=== PATIENT | female | born 1935 | race African-American/Black ===

== ENCOUNTER 2017-09-05 13:54 | Emergency (ER) | payer OTHER ==
[~2017-09-05] VITALS: Ht 165.1 cm; Wt 78.0 kg
[2017-09-05] MEDS ORDERED: HYDR-4061 PO (15:26)
[2017-09-05] MEDS ORDERED: TRAM50TA4 PO (15:26)
[2017-09-05 15:54] LABS: BASOPHILS % (AUTO) 0.7 % (0.0-2.0); EOSINOPHILS % (AUTO) 0.3 % (1.0-6.0); HEMATOCRIT 34.1 % (36-46); LYMPHOCYTES # (AUTO) 1.1 K/uL (1.0-4.8); LYMPHOCYTES % (AUTO) 7.4 % (22.0-44.0); MEAN CORPUSCULAR HGB CONC 32.3 G/dL (31.0-37.0); MEAN CORPUSCULAR VOLUME 90 fL (80-100); MONOCYTES # (AUTO) 1.6 K/uL (0.1-1.0); MONOCYTES % (AUTO) 10.5 % (2.0-9.0); NEUTROPHILS # (AUTO) 12.5 K/uL (1.8-7.7); NEUTROPHILS % (AUTO) 81.1 % (40.0-70.0); PLATELET COUNT (AUTO) 374 K/uL (150-450); RED BLOOD CELL COUNT(AUTO) 3.81 MIL/uL (4.00-5.20); RED CELL DISTRIBUTION WIDTH 16.9 % (11.5-14.5)
[2017-09-05 16:09] LABS: PROTHROMBIN TIME 10.8 SEC (9.4-11.6)
[2017-09-05 16:10] LABS: ANION GAP 9 mmol/L (8-16); CALCIUM, TOTAL 8.6 mg/dL (8.8-10.5); CARBON DIOXIDE 30 mmol/L (22-29); CHLORIDE 100 mmol/L (98-107); CREATININE 0.63 mg/dL (0.60-1.30); GLOMERULAR FILTR. RATE CALC > 60 mL/min (>60); GLUCOSE,RANDOM 103 mg/dL (70-110); POTASSIUM 3.3 mmol/L (3.5-5.1); SODIUM SERUM 139 mmol/L (136-145); UREA NITROGEN, BLOOD 7 mg/dL (7-18)
[2017-09-05 16:15] LABS: ALANINE AMINOTRANSFERASE 22 U/L (12-78); ALKALINE PHOSPHATASE 113 U/L (46-116); ASPARTATE AMINOTRANSFERASE 34 U/L (15-37); BILIRUBIN,TOTAL 0.4 mg/dL (0.1-1.0); LIPASE 70 U/L (73-393)
[2017-09-05 16:18] LABS: AMMONIA 17 umol/L (11-32); TROPONIN I < 0.02 ng/mL (0.00-0.05)
[2017-09-05] MEDS ORDERED: POTASSIUM CHLORIDE 20 MEQ ER TABLET PO ONE (16:30)
[2017-09-05 18:07] LABS: GLUCOSE,POINT OF CARE 102 MG/DL (70-110)
[2017-09-05 18:09] LABS: APPEARANCE,URINE CLOUDY (CLEAR); GLUCOSE, URINE (UA) NEGATIVE (NEGATIVE); KETONES,URINE NEGATIVE (NEGATIVE); LEUKOCYTE ESTERASE ,URINE SMALL (NEGATIVE); NITRATE,URINE NEGATIVE (NEGATIVE); OCCULT BLOOD,URINE NEGATIVE (NEGATIVE); PH,URINE 6.5 (5.0-8.0); PROTEIN,URINE POS 1+ (NEGATIVE)
[2017-09-05 18:14] LABS: BILIRUBIN,URINE PRELIM. POSITIVE (NEGATIVE)
[2017-09-05 18:20] LABS: AMPHET/METH SCREEN,URINE NEGATIVE (NEGATIVE); BARBITURATE SCREEN, URINE NEGATIVE (NEGATIVE); BENZODIAZEPINES SCREEN,URINE NEGATIVE (NEGATIVE); CANNABINOID SCREEN,URINE NEGATIVE (NEGATIVE); COCAINE SCREEN,URINE NEGATIVE (NEGATIVE); METHADONE SCREEN, URINE NEGATIVE (NEGATIVE); OPIATE SCREEN,URINE POSITIVE (NEGATIVE)
[2017-09-05 18:23] LABS: PHENCYCLIDINE SCREEN,URINE NEGATIVE (NEGATIVE)
[2017-09-05 18:27] LABS: RBC,URINE None Seen /HPF (0-2); YEAST,URINE Few /HPF (None Seen)
[2017-09-05 18:28] LABS: BACTERIA,URINE Many /HPF (None Seen); SQUAMOUS EPITHELIAL CELL,UR Few /LPF (None Seen)
[2017-09-05 18:29] LABS: MUCUS,URINE Few LPF (None Seen)
[2017-09-05] MEDS ORDERED: SODIUM CHLORIDE 0.9% 1,000 ML IV ONE (19:00)
[2017-09-05] MEDS ORDERED: CIPROFLOXACIN HCL 250 MG TABLET PO ONE (19:30)
[2017-09-05] MEDS ORDERED: ACETAMINOPHEN 500 MG TABLET PO ONE (23:00)
[2017-09-05 23:45] VITALS: BP 143/67
== END 2017-09-06 00:27 | disposition short-term general hospital (02) ==
LOC: EMS 13:59
DX: R41.82 Altered mental status, unspecified (principal); N39.0 Urinary tract infection, site not specified; M25.562 Pain in left knee; M25.561 Pain in right knee; G89.29 Other chronic pain; F17.200 Nicotine dependence, unspecified, uncomplicated
CPT/HCPCS: 36415; 51701; 70450; 71045; 80053; 80307; 81001; 82140; 82948; 82962; 83690; 84484; 85025; 85610; 87086; 93005; 99285; G0480